=== PATIENT | female | born 1940 | race Caucasian/White ===

== ENCOUNTER 2024-03-20 19:42 | Emergency (ER) | payer MEDICARE, OTHER, SELFPAY ==
[2024-03-20 19:43] VITALS: BP 150/62; PULSE 73; RESP 15; TEMP 36.3; O2SAT 97; BMI 25.7
[2024-03-20 19:46] VITALS: BP 147/65; PULSE 68; RESP 16; TEMP 36.7; O2SAT 98
--- NOTE | 2024-03-20 20:22 | EX.ED.DYSGE1 ---
HPI History of Present Illness Chief Complaint: Complaint Informant: patient and family Narrative Narrative: 83-year-old female from assisted living at [facility]. Reportedly the patient has had weeks of slow decline in her cognitive thinking. This past week she had a dipstick done of her urine and they ordered a culture. Family states that they are concerned that the amount of time is gone by without a prescription because they feel that she needs to be treated. She per the is having episodes of did I do that or not do that and am I really seen that. Patient is denying any fevers but does endorse chills and nausea. No reported falls. She states she is still doing her finances. Patient notes that yesterday and today she had diarrhea after eating lunch and dinner. [facility] Medical History DVT (deep venous thrombosis) Knee pain HTN (hypertension) Atrial fibrillation Home Medications ?Medication ?Instructions ?Recorded ?Last Taken ?Type amlodipine 5 mg tablet 5 mg PO DAILY 03/20/24 Unknown History apixaban 5 mg tablet (Eliquis) 5 mg PO BID 03/20/24 Unknown History buspirone 5 mg tablet 2.5 mg PO QHS 03/20/24 Unknown History cyanocobalamin (vitamin B-12) 500 500 mcg PO DAILY 03/20/24 Unknown History mcg lozenges erythromycin 5 mg/gram (0.5 %) eye ophthalmic (eye) 03/20/24 Unknown History ointment evolocumab 140 mg/mL subcutaneous 420 mg subcut QMONTH 03/20/24 Unknown History pen injector (Repmulugeta Dexter) flecainide 50 mg tablet 50 mg PO BID 03/20/24 Unknown History fluticasone propionate 50 intranasal 03/20/24 Unknown History mcg/actuation nasal spray,suspension hydrocodone-acetaminophen 5-325mg 1 tab PO Q12H 03/20/24 Unknown History 5mg-325mg montelukast 10 mg tablet 10 mg PO DAILY 03/20/24 Unknown History (Singulair) Allergy/AdvReac Type Severity Reaction Status Date / Time adhesive tape Allergy Mild NEEDS Verified 03/20/24 19:53 FOLLOW-UP carvedilol (From Coreg) Allergy Mild NEEDS Verified 03/20/24 19:53 FOLLOW-UP celecoxib (From Celebrex) Allergy Mild NEEDS Verified 03/20/24 19:53 FOLLOW-UP clonidine (From Catapres) Allergy Mild NEEDS Verified 03/20/24 19:53 FOLLOW-UP enalaprilat (From Vasotec) Allergy Mild NEEDS Verified 03/20/24 19:53 FOLLOW-UP erythromycin base Allergy Mild NEEDS Verified 03/20/24 19:53 FOLLOW-UP hydrochlorothiazide (From Allergy Mild NEEDS Verified 03/20/24 19:53 Hyzaar) FOLLOW-UP lisinopril Allergy Mild NEEDS Verified 03/20/24 19:53 FOLLOW-UP losartan (From Hyzaar) Allergy Mild NEEDS Verified 03/20/24 19:53 FOLLOW-UP metoprolol (From Lopressor) Allergy Mild NEEDS Verified 03/20/24 19:53 FOLLOW-UP rofecoxib (From Vioxx) Allergy Mild NEEDS Verified 03/20/24 19:53 FOLLOW-UP rosuvastatin (From Crestor) Allergy Mild NEEDS Verified 03/20/24 19:53 FOLLOW-UP simvastatin (From Zocor) Allergy Mild NEEDS Verified 03/20/24 19:53 FOLLOW-UP Sulfa (Sulfonamide Allergy Mild Hives Verified 03/20/24 19:53 Antibiotics) warfarin (From Jantoven) Allergy Mild NEEDS Verified 03/20/24 19:53 FOLLOW-UP Social History Smoking Status: Never smoker ROS ROS ED Constitutional Constitutional ED: Reports chills; Denies fever(s) or weight loss Eyes Eyes: Denies change in vision or diplopia ENT ENT ED: Denies ear pain, rhinorrhea or sore throat Cardiovascular Cardiovascular: Denies chest pain, orthopnea, palpitations or racing heartbeat Respiratory/Chest Respiratory/Chest: Denies cough, dyspnea or orthopnea Gastrointestinal Gastrointestinal: Reports diarrhea and nausea; Denies abdominal pain or vomiting Genitourinary Genitourinary ED: Denies dysuria, hematuria or urinary frequency Musculoskeletal Musculoskeletal: Denies arthralgias or myalgias Integumentary Denies abscess or rash Neurologic Neurologic: Denies headache(s) or weakness Psychiatric Psychiatric: Denies anxiety, depression, suicidal ideation or suicidal thoughts Endocrine Endocrinology: Denies polydipsia, polyphagia or polyuria Allergic/Immunologic Allergic/Immunologic ED: Denies mouth swelling, tongue swelling or urticaria EXAM Physical Exam Const Vital Signs: 03/20/24 19:43 03/20/24 19:46 03/20/24 20:46 Temperature 97.3 F L 98.1 F 97.5 F L Temperature Source Temporal Oral Oral Pulse Rate 73 68 64 Respiratory Rate 15 16 16 Blood Pressure 150/62 H 147/65 H 139/70 H Blood Pressure Mean 91 92 93 Pulse Ox 97 98 98 Oxygen Delivery Method Room Air Room Air Room Air 03/20/24 21:00 03/20/24 22:00 Temperature 97.8 F 97.8 F Temperature Source Oral Oral Pulse Rate 68 66 Respiratory Rate 16 16 Blood Pressure 141/70 H 158/72 H Blood Pressure Mean 93 100 Pulse Ox 98 98 Oxygen Delivery Method Room Air Room Air Positive well nourished and well developed General Appearance ED: well developed HEENT Reports normocephalic, head/scalp atraumatic and moist mucous membranes Eyes PERRL and EOMs intact bilaterally Neck no lymphadenopathy, supple and no JVD Resp normal respiratory effort and clear to auscultation bilaterally Cardio regular rate and regular rhythm Cardio Narrative: 3 out of 6 systolic murmur GI normal to inspection, nondistended, normoactive bowel sounds and non-tender Palpation: soft Back/Spine no CVA tenderness and normal ROM Extremity normal to inspection General Extremety ED: Negative for edema General Extremity: Negative for edema Neuro oriented x3 and CN's II-XII intact bilaterally Sensorium / Orientation: alert Motor Exam: strength 5/5 throughout Psych mental status grossly normal Mood & Affect: Negative for depressed or tearful Skin no rashes or lesions noted and no wounds MDM MDM MDM Narrative Medical decision making narrative: Differential diagnosis includes but not limited to delirium dementia SIADH volume overload. Patient seems to have a chronic hyponatremia. Today is 126. Chronic leukocytosis today at 3.9 hemoglobin 14.2 platelet count 235. Glucose 99. My independent interpretation of the chest x-ray is no acute process. No mass to suggest SIADH. CT of the brain was obtained. This does not demonstrate any acute process or mass. Chronic involutional changes of the brain are noted. Patient knows that she has been had hyponatremia. She states her doctor wanted to put her on salt tablets but she is hesitant to do so because of the kidney. Patient has episodic confusion. I wonder if she has an underlying dementia. Patient was encouraged to follow-up with her doctors regarding the hyponatremia and the intermittent confusion. She may eventually need more formal mental status testing. History & Record Review Discussion w/independent historian: Patient and Family Additional record(s) reviewed:: Prior labs Lab Data Attestation: I reviewed the patient's lab results. Labs: Laboratory Results - last 24 hr 03/20/24 03/20/24 20:36 21:28 WBC 3.9 L RBC 4.52 Hgb 14.2 Hct 40.7 MCV 90.0 MCH 31.4 MCHC 34.9 RDW Std Deviation 39.8 RDW Coeff of Ramez 12.0 Plt Count 235 MPV 8.3 Immature Gran % (Auto) 0.300 Neut % (Auto) 57.8 Lymph % (Auto) 27.1 [place] % (Auto) 14.5 H Eos % (Auto) 0.3 Baso % (Auto) 0.0 Absolute Neuts (auto) 2.2 Absolute Lymphs (auto) 1.05 Nucleated RBC % 0 Sodium 126 L Potassium 3.5 Chloride 92 L Carbon Dioxide 25.0 Anion Gap 9 BUN 13 Creatinine 0.78 Estim Creat Clear Calc 49.43 Est GFR (MDRD) Af Amer 90 Est GFR (MDRD) Non-Af 75 BUN/Creatinine Ratio 16.6 Glucose 99 Calcium 9.3 Total Bilirubin 0.90 Direct Bilirubin 0.24 AST 21 ALT 17 Alkaline Phosphatase 90 Total Protein 7.3 Albumin 3.9 Globulin 3.4 Urine Color Yellow Urine Clarity Clear Urine pH 7.0 Ur Specific [place] 1.010 Urine Protein Negative Urine Glucose (UA) Normal Urine Ketones 15 H Urine Occult Blood 10 H Urine Nitrite Negative Urine Bilirubin Negative Urine Urobilinogen Normal Ur Leukocyte Esterase 25 H Urine RBC 0 SEEN Urine WBC 0-5 SEEN Ur Squamous Epith Cells 0 SEEN Urine Bacteria 0 SEEN Urine Mucus 0 SEEN Radiography Diagnostic Testing: Clinical Impression(s) from Imaging Studies Chest X-Ray 03/20/24 20:35 IMPRESSION: There are findings consistent with COPD. There is no evidence of acute chest disease. Electronically Signed: Piotr Jett MD at 20:55 EDT , Brain CT 03/20/24 21:15 IMPRESSION: Chronic involutional changes of the brain. No acute abnormalities. Electronically Signed: Piotr Jett MD at 21:47 EDT , Discharge Plan Triage Chief Complaint: Complaint ED Provider: Guzman Amador Dx/Rx/DC Orders Clinical Impression: Chronic hyponatremia, AMS (altered mental status) Instructions: Hyponatremia Dc, ED Confusion Prescriptions: No Action amlodipine 5 mg tablet 5 mg PO DAILY buspirone 5 mg tablet 2.5 mg PO QHS erythromycin 5 mg/gram (0.5 %) ointment ophthalmic (eye) flecainide 50 mg tablet 50 mg PO BID fluticasone propionate 50 mcg/actuation spray,suspension INTRANASAL Patient Comments: [NO ORIGINAL SIG] Eliquis 5 mg tablet 5 mg PO BID montelukast [Singulair] 10 mg tablet 10 mg PO DAILY hydrocodone-acetaminophen 5-325 mg tablet 1 tab PO Q12H Repatha SureClick 140 mg/mL pen injector 420 mg subcut QMONTH cyanocobalamin (vitamin B-12) 500 mcg lozenge 500 mcg PO DAILY Primary Care Provider: Nina Medeiros Referrals: Nina Medeiros MD [Primary Care Provider] - As soon as possible Activity Restrictions/Additional Instructions: Please discuss dementia Mini-Mental status examination with your doctor. Patient please discuss hyponatremia with your doctor. Print Language: French Disposition Disposition: Home, Self Care
--- NOTE | 2024-03-20 20:35 | RAD_ITS ---
STUDY: X-RAY CHEST REASON FOR EXAM: Female, 83 years old. confusion TECHNIQUE: Single AP portable view of the chest. COMPARISON: None. FINDINGS: There is hyperinflation of the lungs consistent with chronic obstructive lung disease (COPD). No infiltrates or effusions. There is no demonstrated pleural abnormality. Normal size heart. Normal mediastinum and susan. Normal visualized pulmonary arteries. Normal visualized aortic arch and descending thoracic aorta. There are diffuse degenerative changes of the visualized thoracic spine. Normal visualized ribs, clavicles, and shoulders. There is no demonstrated abnormality of the visualized soft tissue structures of the upper abdomen. RAD/Chest 1 View (Portable) IMPRESSION: There are findings consistent with COPD. There is no evidence of acute chest disease. Electronically Signed: Piotr Jett MD at 20:55 EDT ,
[2024-03-20 20:45] LABS: Absolute Lymphocyte Count 1.05 X10^3/uL (0.83-4.51); Absolute Neutrophil Count 2.2 X10^3/uL (2.0-7.7); Eosinophil# 0.01 X10^3/uL; Eosinophils% 0.3 % (0-5); Hematocrit 40.7 % (37-47); Hemoglobin 14.2 g/dL (12.0-15.0); Lymphocyte # 1.05 X10^3/ul (0.83-4.51); Lymphocyte % 27.1 % (19-41); Mean Corp Hgb Conc 34.9 g/dL (32-36); Mean Corpuscular Hgb 31.4 pg (27.0-32.0); Mean Platelet Vol. 8.3 fl (6.2-12.0); Monocyte# 0.56 X10^3/uL; Monocyte% 14.5 % (0-10); NRBC Flagged by Analyzer 0 % (0-5); Neutrophil # 2.24 X10^3/uL (2.7-7.7); Neutrophil % 57.8 % (47-70); Platelet Count 235 K/mm3 (150-450); RBC Distribution Width SD 39.8 fl (35.1-43.9); Red Blood Count 4.52 M/mm3 (4.2-5.4); White Blood Count 3.9 K/mm3 (4.4-11.0)
[2024-03-20 20:46] VITALS: BP 139/70; PULSE 64; RESP 16; TEMP 36.4; O2SAT 98
[2024-03-20 21:00] VITALS: BP 141/70; PULSE 68; RESP 16; TEMP 36.6; O2SAT 98
[2024-03-20 21:00] LABS: AST(SGOT) 21 U/L (15-37); Alanine Aminotransfer ALT/SGPT 17 U/L (13-56); Albumin, Serum 3.9 g/dL (3.2-5.0); Alkaline Phosphatase 90 U/L (45-117); Anion Gap 9 (5-15); BUN 13 mg/dL (7-18); BUN/Creat Ratio 16.6 RATIO (10-20); Bilirubin, Direct 0.24 mg/dL (0.00-0.30); Calcium,Total 9.3 mg/dL (8.5-10.1); Chloride 92 mmol/L (98-107); Creatinine, Serum 0.78 mg/dL (0.55-1.02); EST Glomerular Filtration Rate 75 mL/min (>60); Est Glom Filt Rate - Afr Amer 90 mL/min (>60); Estimated Creatinine Clearance 49.43 ml/min; Globulin 3.4 g/dL (2.2-4.2); Glucose 99 mg/dL (74-106); Potassium 3.5 mmol/L (3.5-5.1); Protein, Total 7.3 g/dL (6.4-8.2); Sodium Level 126 mmol/L (136-145)
--- NOTE | 2024-03-20 21:15 | CT_ITS ---
STUDY: CT BRAIN WITHOUT CONTRAST REASON FOR EXAM: Female, 83 years old. confusion RADIATION DOSAGE (If Supplied By Facility): CTDIvol = ( 44.99 ) mGy, DLP = ( 812.98 ) mGycm TECHNIQUE: Transaxial CT imaging of the brain was performed without administration of intravenous contrast material. Individualized dose optimization techniques were used for this CT. COMPARISON: No relevant priors. FINDINGS: Normal soft tissue structures. Normal calvarium. Normal size ventricles and extra-axial spaces for the patient''s age. There are areas of decreased attenuation within the white matter tracts of the supratentorial brain, consistent with microvascular disease changes. Normal basal ganglia and thalami. Normal brainstem. Normal cerebellum. There is no intracranial hemorrhage. There are no findings of an acute ischemic infarction. Normal visualized paranasal sinuses. CT/Brain/Head without Contrast IMPRESSION: Chronic involutional changes of the brain. No acute abnormalities. Electronically Signed: Piotr Jett MD at 21:47 EDT ,
[2024-03-20 21:42] LABS: Bacteria 0 SEEN /hpf (None Seen); Mucous, Urine 0 SEEN /hpf (<or=2+); Red Blood Cells-Urine 0 SEEN /hpf (0-5); Squamous Epithelial Cells - UA 0 SEEN /hpf (5-10)
[2024-03-20 21:45] LABS: Color, Urine Yellow (Yellow); Glucose, Dipstick Normal (Normal); Ketone-Dipstick 15 mg/dl (Negative); Leukocyte Esterase-Dipstick 25 /ul (Negative); Nitrite-Dipstick Negative (Negative); Occult Blood-Urine 10 /ul (Negative); Protein-Dipstick Negative (Negative); Urine Bilirubin Dipstick Negative (Negative); Urine Clarity Clear (Clear); Urine Urobilinogen Normal (Normal)
[2024-03-20 22:00] VITALS: BP 158/72; PULSE 66; RESP 16; TEMP 36.6; O2SAT 98
[2024-03-20 22:01] LABS: White Blood Cells 0-5 SEEN /hpf (0-5)
[2024-03-20 22:33] VITALS: BP 159/56; PULSE 66; RESP 16; TEMP 36.5; O2SAT 98
== END 2024-03-20 22:41 | disposition home or self-care (01) ==
PROVIDERS: Emergency Provider Emergency Medicine; PCP Internal Medicine; Visit Provider Emergency Medicine
DX: E87.1 Hypo-osmolality and hyponatremia (principal); I48.91 Unspecified atrial fibrillation; R41.82 Altered mental status, unspecified; I10 Essential (primary) hypertension; Z79.01 Long term (current) use of anticoagulants; Z79.899 Other long term (current) drug therapy; Z86.718 Personal history of other venous thrombosis and embolism
CPT/HCPCS: 70450; 71045; 80048; 80076; 81001; 85025; 99283; A4216